=== PATIENT | female | born 1970 | race African-American/Black ===

== ENCOUNTER 2016-10-17 10:44 | Emergency (ER) | payer OTHER ==
[2016-10-17 10:48] VITALS: PULSE 75; O2SAT 98
--- NOTE | 2016-10-17 11:11 | C.PDOC ---
History Of Present Illness 46 y/o female c/o sore throat, left side sinus pressure and facial pain x 3 days , with subjective fever this morning. pt reports parents of she cares for are both being treated for strep throat. c/o yellowish green nasal discharge. no ear pain. no cough or sob. Time Seen by Provider: 10/17/16 10:58 Chief Complaint (Nursing): ENT Problem History Per: Patient History/Exam Limitations: None Onset/Duration Of Symptoms: Days (3) Current Symptoms Are (Timing): Still Present Quality (Mouth/Throat): Other Severity: Moderate Anticoagulant/Antiplatlet Use?: No Past Medical History Reviewed: Historical Data, Nursing Documentation, Vital Signs Vital Signs: Last Vital Signs Temp 98.2 F 10/17/16 12:19 Pulse 75 10/17/16 12:19 Resp 18 10/17/16 12:19 BP 132/75 10/17/16 12:19 Pulse Ox 98 10/17/16 12:34 - Medical History Other PMH: sinus problems Surgical History: No Surg Hx Family History: States: Unknown Family Hx - Social History Hx Tobacco Use: No Hx Alcohol Use: Yes Hx Substance Use: No - Immunization History Hx Tetanus Toxoid Vaccination: No Hx Influenza Vaccination: No Hx Pneumococcal Vaccination: No Review Of Systems Constitutional: Positive for: Fever. Negative for: Chills ENT: Positive for: Throat Pain Cardiovascular: Negative for: Chest Pain Respiratory: Negative for: Shortness of Breath Gastrointestinal: Negative for: Nausea, Vomiting, Diarrhea Skin: Negative for: Rash Physical Exam - Physical Exam Appears: Non-toxic, No Acute Distress Skin: Normal Color, Warm Head: Atraumatic, Normacephalic Nose: Tenderness (Left Maxillary sinus Tenderness) Oral Mucosa: Moist Throat: Erythema (Mild erythema in throat), No Exudate Neck: Normal ROM Chest: Symmetrical Cardiovascular: Rhythm Regular, No Murmur Respiratory: No Rales, No Rhonchi, No Wheezing Gastrointestinal/Abdominal: Soft, No Tenderness, No Guarding, No Rebound Extremity: Normal ROM Neurological/Psych: Oriented x3, Normal Speech, Normal Cognition ED Course And Treatment O2 Sat by Pulse Oximetry: 98 (RA) Pulse Ox Interpretation: Normal Medical Decision Making Medical Decision Making: pt with sore throat and left side sinus pressure; rapid strep neg. pt requesting rx for antibiotics in case symptoms worsen as she won't be able to get time off to see physician. I explained to patient no indication for antibiotics at this time, recommend analgesic and decongestant. Disposition Counseled Patient/Family Regarding: Diagnosis, Need For Followup, Rx Given - Disposition Referrals: [facility] [Outside] [facility] [Outside] Disposition: HOME/ ROUTINE Disposition Time: 12:06 Condition: STABLE Additional Instructions: Gargle with warm salty water several times a day. Take Sudafed or other decongestant as directed. Neti pot or nasal saline will be helpful. Take Tylenol or Ibuprofen for fever or pain. Follow up in Medical clinic in a few days. Prescriptions: Azithromycin [Z-Wil] 250 mg PO DAILY #6 tab Instructions: Pharyngitis (ED), Sinusitis (ED), Nasal Rinse (ED) - Clinical Impression Clinical Impression: Upper respiratory infection - PA / HEALTH INFORMATION CLERK / Resident Statement MD/DO has reviewed & agrees with the documentation as recorded. - Scribe Statement The provider has reviewed the documentation as recorded by the Santosibnicki Roberson All medical record entries made by the Santosibnicki were at my direction and personally dictated by me. I have reviewed the chart and agree that the record accurately reflects my personal performance of the history, physical exam, medical decision making, and the department course for this patient. I have also personally directed, reviewed, and agree with the discharge instructions and disposition.
[2016-10-17 12:21] VITALS: BP 132/75; RESP 18; TEMP 98.2
== END 2016-10-17 12:20 | disposition home or self-care (01) ==
LOC: C.ER 10:44
DX: J06.9 Acute upper respiratory infection, unspecified (principal)

== ENCOUNTER 2016-11-27 23:49 | Emergency (ER) | payer OTHER ==
[2016-11-27 23:57] VITALS: BP 144/84; PULSE 81; RESP 17; TEMP 98.3; O2SAT 95
--- NOTE | 2016-11-28 00:21 | C.PDOC ---
History Of Present Illness 46 year old female with a Hx of sinusitis who presents to the ER with a complaint of a pressure headache and left sided facial and throat pain for the past week. Patient has been taking OTC medication with no relief to symptoms. Denies fever or chills. Time Seen by Provider: 11/28/16 00:14 Chief Complaint (Nursing): ENT Problem History Per: Patient History/Exam Limitations: no limitations Onset/Duration Of Symptoms: Days Location Of Pain: Sinus/es, Headache Associated Symptoms: denies: Fever, Chills Ear Symptoms: Bilateral: None Recent travel outside of the [place]: No Past Medical History Reviewed: Historical Data, Nursing Documentation, Vital Signs Vital Signs: Last Vital Signs Temp 98.3 F 11/27/16 23:54 Pulse 81 11/27/16 23:54 Resp 17 11/27/16 23:54 BP 144/84 11/27/16 23:54 Pulse Ox 95 11/28/16 03:18 - Medical History PMH: No Chronic Diseases Surgical History: No Surg Hx Family History: States: Unknown Family Hx - Social History Hx Tobacco Use: No Hx Alcohol Use: Yes Hx Substance Use: No - Immunization History Hx Tetanus Toxoid Vaccination: No Hx Influenza Vaccination: No Hx Pneumococcal Vaccination: No Review Of Systems Constitutional: Negative for: Fever, Chills Neurological: Positive for: Headache Physical Exam - Physical Exam Appears: Non-toxic Skin: Normal Color, Warm, Dry Head: Atraumatic, Normacephalic, Other (Left frontal sinus tenderness) Eye(s): bilateral: Normal Inspection, PERRL, EOMI Ear(s): Bilateral: Normal Nose: Other (Enlarged nasal turbinates) Oral Mucosa: Moist Throat: Normal, No Erythema, No Exudate Neck: Normal, Supple Chest: Symmetrical, No Tenderness Cardiovascular: Rhythm Regular, No Murmur Respiratory: Normal Breath Sounds, No Rales, No Rhonchi, No Wheezing Neurological/Psych: Oriented x3, Normal Speech, Normal Cognition ED Course And Treatment O2 Sat by Pulse Oximetry: 95 (Room air) Pulse Ox Interpretation: Normal Progress Note: Tylenol administered. On reevaluation, patient feels her pain as much improved, will instruct to follow up with PMD for further evaluation. Disposition - Disposition Referrals: [facility] [Outside] Disposition: HOME/ ROUTINE Disposition Time: 00:19 Condition: STABLE Additional Instructions: Take meds as directed Follow up with PMD Return to ER if worse Prescriptions: Azithromycin [Zithromax] 250 mg PO DAILY #6 tab Cetirizine HCl [Zyrtec] 10 mg PO DAILY #20 capsule Instructions: Sinusitis (ED) - Clinical Impression Clinical Impression: Sinusitis - Scribe Statement The provider has reviewed the documentation as recorded by the Scribnicki Marley All medical record entries made by the Dat were at my direction and personally dictated by me. I have reviewed the chart and agree that the record accurately reflects my personal performance of the history, physical exam, medical decision making, and the department course for this patient. I have also personally directed, reviewed, and agree with the discharge instructions and disposition.
== END 2016-11-28 00:35 | disposition home or self-care (01) ==
LOC: SUPCPDRO 23:49 → C.ER 23:49
DX: J32.9 Chronic sinusitis, unspecified (principal)

== ENCOUNTER 2016-11-29 09:15 | Emergency (ER) | payer OTHER ==
[2016-11-29] MEDS ORDERED: Naproxen 550 mg Tab PO STA (09:41)
--- NOTE | 2016-11-29 09:43 | C.PDOC ---
History Of Present Illness 46 yo female, presnets with aguirre, left sided sinus congestion, sore throat, since sunday. pt was seen on sunday d/c on antibiotics for sinusitis. pt states pain worsened. t states subjective fever last night. no abdominal pain, no cough, no other complaints Time Seen by Provider: 11/29/16 09:33 Chief Complaint (Nursing): Headache Past Medical History Reviewed: Historical Data, Nursing Documentation, Vital Signs Vital Signs: Last Vital Signs Temp 98.3 F 11/29/16 10:21 Pulse 90 11/29/16 10:21 Resp 14 11/29/16 10:21 BP 169/115 H 11/29/16 10:21 Pulse Ox 99 11/29/16 10:21 Family History: States: Unknown Family Hx - Social History Hx Tobacco Use: No Hx Alcohol Use: Yes Hx Substance Use: No - Immunization History Hx Tetanus Toxoid Vaccination: No Hx Influenza Vaccination: No Hx Pneumococcal Vaccination: No Review Of Systems Constitutional: Positive for: Fever ENT: Positive for: Throat Pain, Other (left sided sinus congestion). Negative for: Ear Pain Respiratory: Negative for: Cough Physical Exam - Physical Exam Appears: Well, No Acute Distress, Other (smiling in nad) Skin: Normal Color, Warm, Dry Head: Atraumatic, Normacephalic, Other ((+)left maxially sinus ttp) Eye(s): bilateral: Normal Inspection, PERRL, EOMI Nose: Normal Oral Mucosa: Moist Tongue: Normal Appearing Lips: Normal Appearing Throat: Erythema, No Exudate Neck: Normal Cardiovascular: Rhythm Regular Respiratory: Normal Breath Sounds Gastrointestinal/Abdominal: Normal Exam Back: Normal Inspection Extremity: Normal ROM Neurological/Psych: Oriented x3, Normal Speech, Normal Cognition, Normal Cranial Nerves, Cerebellar Signs, Normal Motor, Normal Sensation Medical Decision Making Medical Decision Making: suspect aguirre 2/[address] pt well appeairng, neuro intact, notified of high blood pressure in er, advised outpt f/u. pt states pain resolved Disposition - Disposition Referrals: Jimbo Sung MD [Staff Provider] - Disposition: HOME/ ROUTINE Disposition Time: 10:25 Condition: STABLE Additional Instructions: please see specialsit. return to er with worsening symptoms or concerns. please continue medications previous prescribed. Prescriptions: Fluticasone Propionate [Flonase] 1 spr NS DAILY #1 bottle Naproxen [Naprosyn] 500 mg PO BID PRN #14 tablet PRN Reason: Pain, Mild (1-3) Instructions: Sinusitis (ED), Acute Headache (ED) Forms: [employer] (Slovak) - Clinical Impression Clinical Impression: Headache
[2016-11-29] MEDS ORDERED: Naproxen 550 mg Tab PO ONE (09:55)
[2016-11-29 10:22] VITALS: BP 169/115; PULSE 90; RESP 14; TEMP 98.3; O2SAT 99
--- NOTE | 2016-11-29 10:26 | CT ---
PROCEDURE: CT HEAD WITHOUT CONTRAST. HISTORY: aguirre COMPARISON: None available. TECHNIQUE: Axial computed tomography images were obtained through the head/brain without intravenous contrast. Radiation dose: Total exam DLP = 859.11 mGy-cm. This CT exam was performed using one or more of the following dose reduction techniques: Automated exposure control, adjustment of the mA and/or kV according to patient size, and/or use of iterative reconstruction technique. FINDINGS: HEMORRHAGE: No intracranial hemorrhage. BRAIN: No mass effect or edema. The bateman-white matter differentiation appears intact. Please note that MRI with diffusion imaging is more sensitive in the detection of acute ischemic event. VENTRICLES: No hydrocephalus. CALVARIUM: Unremarkable. PARANASAL SINUSES: Unremarkable as visualized. No significant inflammatory changes. MASTOID AIR CELLS: Unremarkable as visualized. No inflammatory changes. OTHER FINDINGS: None. IMPRESSION: No acute intracranial pathology identified.
== END 2016-11-29 10:31 | disposition home or self-care (01) ==
LOC: C.ER 09:15
DX: R51 Headache (principal)

== ENCOUNTER 2018-03-04 11:40 | Emergency (ER) | payer SELFPAY ==
[2018-03-04 11:46] VITALS: BMI 27.3
[2018-03-04] MEDS ORDERED: Sodium Chloride 0.9% 1,000 ML IV STA (13:17)
[2018-03-04] MEDS ORDERED: Sodium Chloride 0.9% 1,000 ML ONE (13:49)
[2018-03-04 13:50] LABS: BASO # 0.1 K/uL (0.0-0.2); BASO % 0.9 % (0.0-2.0); EOS # 0.6 K/uL (0.0-0.7); EOS % 7.5 % (0.0-4.0); HEMOGLOBIN 12.6 g/dL (11.0-16.0); LYMPH # 2.2 K/uL (1.0-4.3); LYMPH % 27.7 % (20.0-40.0); MEAN CELL VOLUME 81.6 fL (81.0-99.0); MEAN CORPUSCULAR HEMOGLOBIN 27.2 pg (27.0-31.0); MEAN CORPUSCULAR HGB CONC 33.3 g/dL (33.0-37.0); MEAN PLATELET VOLUME 7.3 fL (7.2-11.7); MONO # 0.7 K/uL (0.0-0.8); NEUT # 4.3 K/uL (1.8-7.0); NEUT % 54.9 % (50.0-75.0); RBC 4.63 Mil/uL (3.80-5.20); RED CELL DISTRIBUTION WIDTH 14.3 % (11.5-14.5); WHITE BLOOD COUNT 7.8 K/uL (4.8-10.8)
[2018-03-04 14:01] LABS: PROTHROMBIN TIME 10.7 SECONDS (9.7-12.2)
[2018-03-04 14:06] LABS: ALB/GLOB RATIO 1.3 (1.0-2.1); ALT/SGPT 33 U/L (9-52); AST/SGOT 24 U/L (14-36); BLOOD UREA NITROGEN 15 mg/dL (7-17); CALCIUM 9.5 mg/dl (8.6-10.4); GFR NON-AFRICAN AMERICAN > 60
--- NOTE | 2018-03-04 14:45 | US ---
Date of service: 03/04/2018 HISTORY: vaginal bleeding COMPARISON: Pelvic ultrasound dated 12/07/2014. TECHNIQUE: Grayscale, color Doppler and spectral evaluation the pelvis performed transabdominally and transvaginally. FINDINGS: UTERUS: Measures 9.4 x 5.0 x 6.0 cm. Anteverted. Normal in size and appearance. Fundal fibroid measuring 2.4 x 2.3 x 2.2 cm. Anterior intramural fibroid measuring 1.7 x 1.4 x 1.5 cm. ENDOMETRIUM: Measures 4 mm in diameter. Unremarkable. CERVIX: No cervical abnormality identified. RIGHT OVARY: Measures 2.8 x 1.4 x 2.4 cm. No solid mass. Normal flow. LEFT OVARY: Measures 3.3 x 1.7 x 3.5 cm. Dominant follicle measuring 2.2 x 1.4 x 1.9 cm. Normal flow. FREE FLUID: No significant free fluid noted. OTHER FINDINGS: None. IMPRESSION: Multi fibroid uterus, the largest of which measures 2.4 cm in the fundus.
--- NOTE | 2018-03-04 15:45 | C.PDOC ---
History Of Present Illness 47 year old female presents to the ED for evaluation of vaginal bleeding which began 4 days ago. Patient states she was taking control, which was causing an increase in her blood pressure. When she was evaluated by clinic, she was switched to a new pill. She has been taking Norethindrone 0.35mg daily since February 17. Patient states she developed heavy vaginal bleeding associated with weakness 4 days ago. She reports using one pad per hour. Patient states she is scheduled for an appointment with her NURSING SPECIALIST for tomorrow. Patient denies abdominal pain. Time Seen by Provider: 03/04/18 11:57 Chief Complaint (Nursing): Female Genitourinary History Per: Patient History/Exam Limitations: no limitations Onset/Duration Of Symptoms: Days (4) Current Symptoms Are (Timing): Still Present Quality Of Discomfort: denies: "Pain" Additional History Per: Patient Abnormal Vaginal Bleeding: Yes Past Medical History Reviewed: Historical Data, Nursing Documentation, Vital Signs Vital Signs: Last Vital Signs Temp 98.8 F 03/04/18 11:46 Pulse 78 03/04/18 12:49 Resp 21 03/04/18 12:49 BP 136/78 03/04/18 12:49 Pulse Ox 100 03/04/18 12:49 - Medical History PMH: No Chronic Diseases Surgical History: Family History: States: Unknown Family Hx - Social History Hx Tobacco Use: No Hx Alcohol Use: Yes Hx Substance Use: No - Immunization History Hx Tetanus Toxoid Vaccination: No Hx Influenza Vaccination: No Hx Pneumococcal Vaccination: No Review Of Systems Gastrointestinal: Negative for: Abdominal Pain Genitourinary: Positive for: Vaginal Bleeding Physical Exam - Physical Exam Appears: Non-toxic, No Acute Distress Skin: Normal Color, Warm, Dry Head: Atraumatic, Normacephalic Eye(s): bilateral: Normal Inspection Oral Mucosa: Moist Neck: Supple Chest: Symmetrical, No Deformity, No Tenderness Cardiovascular: Rhythm Regular, No Murmur Respiratory: Normal Breath Sounds, No Rales, No Rhonchi, No Wheezing Gastrointestinal/Abdominal: Soft, No Tenderness, No Guarding, No Rebound Pelvic: Vaginal Bleeding (active, noted during external exam ) Extremity: Normal ROM, Capillary Refill (less than 2 seconds ) Neurological/Psych: Oriented x3, Normal Speech, Normal Cognition ED Course And Treatment - Laboratory Results Result Diagrams: 03/04/18 13:45 03/04/18 13:45 O2 Sat by Pulse Oximetry: 100 (on RA ) Pulse Ox Interpretation: Normal - CT Scan/US ultrasound Other Rad Studies (CT/US): Read By Radiologist, Radiology Report Reviewed CT/US Interpretation: Date of service: 03/04/2018. HISTORY: vaginal bleeding. COMPARISON: Pelvic ultrasound dated 12/07/2014. TECHNIQUE: Grayscale, color Doppler and spectral evaluation the pelvis performed transabdominally and transvaginally. FINDINGS: UTERUS: Measures 9.4 x 5.0 x 6.0 cm. Anteverted. Normal in size and appearance. Fundal fibroid measuring 2.4 x 2.3 x 2.2 cm. Anterior intramural fibroid measuring 1.7 x 1.4 x 1.5 cm. ENDOMETRIUM: Measures 4 mm in diameter. Unremarkable. CERVIX: No cervical abnormality identified. RIGHT OVARY: Measures 2.8 x 1.4 x 2.4 cm. No solid mass. Normal flow. LEFT OVARY: Measures 3.3 x 1.7 x 3.5 cm. Dominant follicle measuring 2.2 x 1.4 x 1.9 cm. Normal flow. FREE FLUID: No significant free fluid noted. OTHER FINDINGS: None. IMPRESSION: Multi fibroid uterus, the largest of which measures 2.4 cm in the fundus. Progress Note: Bloodwork and ultrasound ordered. IV Fluids given. Bloodwork results do not indicate anemia. Ultrasound results show two small fibroids. Since patient has active bleeding, case was discussed with Dr. Valenzuela (NURSING SPECIALIST science liaison). Dr. Valenzuela advises to change norethindrone dose to 5mg TID for 3 days, 5mg BID for 1 week, and 5mg QD for two weeks. On reassessment, patient is resting comfortably, showing no signs of distress and is stable for discharge. Patient is advised to follow up with her NURSING SPECIALIST tomorrow as scheduled. Advised to return to the ED immediately if symptoms worsen. Disposition - Disposition Disposition: HOME/ ROUTINE Disposition Time: 15:45 Condition: STABLE Additional Instructions: Follow up with your PMD and OBGYN within 1-2 days. Return to ED if feel worse. Prescriptions: Norethindrone Acetate [Norethindrone AC ([place])] 5 mg PO . DIRECTED #37 tablet Instructions: Heavy Periods (DC) Forms: [employer] (Icelandic) - Clinical Impression Clinical Impression: DUB (dysfunctional uterine bleeding) - PA / EDUCATIONAL THERAPY TEACHER / Resident Statement MD/DO has reviewed & agrees with the documentation as recorded. - Scribe Statement The provider has reviewed the documentation as recorded by the Scribe (Tere Haley) All medical record entries made by the Scribe were at my direction and personally dictated by me. I have reviewed the chart and agree that the record accurately reflects my personal performance of the history, physical exam, medical decision making, and the department course for this patient. I have also personally directed, reviewed, and agree with the discharge instructions and disposition.
[2018-03-04 16:16] VITALS: BP 143/97; PULSE 75; RESP 18; TEMP 98.3
[2018-03-04 18:23] VITALS: O2SAT 100
== END 2018-03-04 16:17 | disposition home or self-care (01) ==
LOC: C.ER 11:40
DX: N93.8 Other specified abnormal uterine and vaginal bleeding (principal)
CPT/HCPCS: 76830; 76856; 80053; 85025; 85610; 85730; 86850; 86900; 96360; 99285; J7030